=== PATIENT | female | born 1975 | race Caucasian/White ===

== ENCOUNTER 2023-11-23 06:42 | Emergency (ER) | payer MEDICAID, OTHER ==
[~2023-11-23] VITALS: Ht 170.2 cm; Wt 100.0 kg
[2023-11-23 06:51] VITALS: BP 104/66; PULSE 83; RESP 18; TEMP 97.8; O2SAT 97
[2023-11-23 07:40] LABS: BASOPHILS % 0.6 % (0.0-2.0); EOSINOPHILS % 3.5 % (0.0-5.0); HEMATOCRIT. 46.5 % (36.0-48.0); LYMPHOCYTES % 21.5 % (20.0-50.0); MEAN CORPUSCULAR HEMOGLOBIN 31.3 pg (28.0-32.0); MEAN CORPUSCULAR HGB CONC 32.3 g/dL (31.0-37.0); MEAN CORPUSCULAR VOLUME 96.7 fL (81.0-99.0); MEAN PLATELET VOLUME 8.8 fl (7.4-10.4); MONOCYTES % 5.3 % (2.0-8.0); NEUTROPHILS % 69.1 % (40.0-76.0); PLATELET 237 x1000/uL (130-400); RED BLOOD CELL COUNT 4.81 mill/uL (4.2-5.4); RED CELL DISTRIBUTION WIDTH 14.2 % (11.6-14.6); WHITE BLOOD COUNT 9.8 x1000/uL (4.5-11.0)
[2023-11-23 07:51] LABS: POTASSIUM 4.7 mEq/L (3.5-5.1)
[2023-11-23 07:52] LABS: CALCIUM 9.9 mg/dL (8.7-10.4)
[2023-11-23 07:57] LABS: CREATININE 1.3 mg/dL (0.6-1.0)
[2023-11-23 08:32] LABS: HCG SCREEN NEGATIVE
[2023-11-23 08:48] LABS: TROPONIN I HIGH SENSITIVITY 15 ng/L (3.0-34)
[2023-11-23 08:49] LABS: ALANINE AMINOTRANSFERASE 17 IU/L (10-49); ALBUMIN 4.5 g/dL (3.2-4.8); ASPARTATE AMINOTRANSFERASE 17 IU/L (<34); BILIRUBIN DIRECT 0.2 mg/dL (<=3.0); BILIRUBIN TOTAL 0.6 mg/dL (0.1-1.0); PROTEIN TOTAL 7.2 g/dL (6.0-8.3)
[2023-11-23 09:59] LABS: TROPONIN I HIGH SENSITIVITY 16 ng/L (3.0-34)
[2023-11-23] MEDS: MORPHINE SULFATE 4 MG/ML INJ (FOR IV/IM USE) IM ONE (10:40)
[2023-11-23 13:13] LABS: CLARITY URINE CLEAR (CLEAR); COLOR URINE YELLOW (YELLOW); GLUCOSE URINE 3+ (NEGATIVE); KETONES URINE 1+ (NEGATIVE); LEUKOCYTE ESTERASE URINE NEGATIVE (NEGATIVE); NITRITE URINE NEGATIVE (NEGATIVE); OCCULT BLOOD URINE TRACE (NEGATIVE); PH URINE 5.5 (4.5-8.0); PROTEIN URINE 1+ (NEGATIVE); SPECIFIC GRAVITY URINE 1.036 (1.005-1.030); UROBILINOGEN URINE 0.2 E.U./dL (0.2-1.0)
[2023-11-23 14:06] LABS: BACTERIA URINE 4+; SQUAMOUS EPITHELIAL CELL URINE 3+ /lpf (RARE/1+)
[2023-11-23 14:09] LABS: RBC URINE NONE SEEN /hpf (0-2)
== END 2023-11-23 14:02 | disposition home or self-care (01) ==
LOC: ER 06:42
DX: R10.9 Unspecified abdominal pain (principal); I25.2 Old myocardial infarction; I10 Essential (primary) hypertension; E11.9 Type 2 diabetes mellitus without complications
CPT/HCPCS: 99285; 74176; 71045; 80076; 80048; 81003; 84703; 83690; 85025; 84484; 93005; 96372; 36415; J2270

== ENCOUNTER 2024-06-26 03:32 | Emergency (ER) | payer OTHER ==
[~2024-06-26] VITALS: Ht 162.6 cm; Wt 90.0 kg
[2024-06-26 03:34] VITALS: O2SAT 99
[2024-06-26] MEDS ORDERED: MORPHINE SULFATE 4 MG/ML INJ (FOR IV/IM USE) IV STA (03:51)
[2024-06-26] MEDS ORDERED: ONDANSETRON HCL 4MG/2ML INJ IV STA (03:51)
[2024-06-26 04:47] LABS: BASOPHILS % 0.6 % (0.0-2.0); EOSINOPHILS % 9.4 % (0.0-5.0); HEMATOCRIT. 40.9 % (36.0-48.0); HEMOGLOBIN. 13.6 g/dL (12.0-16.0); LYMPHOCYTES % 27.4 % (20.0-50.0); MEAN CORPUSCULAR HGB CONC 33.3 g/dL (31.0-37.0); MEAN CORPUSCULAR VOLUME 99.2 fL (81.0-99.0); MEAN PLATELET VOLUME 8.3 fl (7.4-10.4); MONOCYTES % 10.4 % (2.0-8.0); NEUTROPHILS % 52.2 % (40.0-76.0); PLATELET 240 x1000/uL (130-400); RED BLOOD CELL COUNT 4.12 mill/uL (4.2-5.4); RED CELL DISTRIBUTION WIDTH 13.4 % (11.6-14.6); WHITE BLOOD COUNT 7.1 x1000/uL (4.5-11.0)
[2024-06-26 04:54] LABS: POTASSIUM 4.3 mEq/L (3.5-5.1)
[2024-06-26 05:18] LABS: HCG SCREEN NEGATIVE
[2024-06-26 05:46] LABS: CREATININE 1.2 mg/dL (0.6-1.0)
[2024-06-26 09:15] VITALS: TEMP 36.6; O2SAT 100
[2024-06-26 09:28] VITALS: BP 109/88; PULSE 72; RESP 15
[2024-06-26] MEDS: MORPHINE SULFATE 4 MG/ML INJ (FOR IV/IM USE) IV NR (09:28)
[2024-06-26] MEDS: ONDANSETRON HCL 4MG/2ML INJ IV NR (09:28)
== END 2024-06-26 09:35 | disposition short-term general hospital (02) ==
LOC: ER 03:32 → CANBEDREQ 07:33 → ER 09:35
DX: R10.11 Right upper quadrant pain (principal); E11.9 Type 2 diabetes mellitus without complications; I25.2 Old myocardial infarction
CPT/HCPCS: 80048; 84703; 83605; 83690; 85025; 36415; 74176; 96374; 99285; J2405; J2270; A4663; Z7610 ×2; C1893; A4606

== ENCOUNTER 2025-01-07 13:01 | Emergency (ER) | payer MEDICAID ==
[~2025-01-07] VITALS: Ht 165.1 cm; Wt 90.0 kg
[~2025-01-07 13:01] MED LIST: ASPI-1406 PO; ATOR20TA65 MT; CLOP-31 MT; EMPA25TA MT; GABA-1180 PO; IBUP-2029 MT; INSU100I24 SUBCUT; TICA60TA PO; TOPI-95 PO
[2025-01-07 13:02] VITALS: TEMP 36.9; O2SAT 97
[2025-01-07 14:02] LABS: CREATININE 1.3 mg/dL (0.6-1.0); UREA NITROGEN BLOOD 19 mg/dL (9-23)
[2025-01-07 14:03] LABS: ETHANOL BLOOD < 10 mg/dL (<10); HCG SCREEN NEGATIVE
[2025-01-07 14:04] LABS: ASPARTATE AMINOTRANSFERASE 18 IU/L (<34); BILIRUBIN DIRECT 0.1 mg/dL (<=3.0)
[2025-01-07 14:05] LABS: BILIRUBIN TOTAL 0.5 mg/dL (0.1-1.0); PROTEIN TOTAL 6.8 g/dL (6.0-8.3)
[2025-01-07] MEDS: ONDANSETRON HCL 4MG/2ML INJ IV ONE (14:12)
[2025-01-07] MEDS: PANTOPRAZOLE SODIUM 40 MG/VIAL IV ONE (14:12)
[2025-01-07] MEDS: MORPHINE SULFATE 4 MG/ML INJ (FOR IV/IM USE) IV ONE (14:12)
[2025-01-07 14:14] LABS: BASOPHILS % 0.7 % (0.0-2.0); EOSINOPHILS % 4.4 % (0.0-5.0); HEMATOCRIT. 43.4 % (36.0-48.0); HEMOGLOBIN. 14.3 g/dL (12.0-16.0); LYMPHOCYTES % 27.0 % (20.0-50.0); MEAN PLATELET VOLUME 8.5 fl (7.4-10.4); MONOCYTES % 8.1 % (2.0-8.0); NEUTROPHILS % 59.8 % (40.0-76.0); PLATELET 262 x1000/uL (130-400); RED BLOOD CELL COUNT 4.50 mill/uL (4.2-5.4); RED CELL DISTRIBUTION WIDTH 13.9 % (11.6-14.6)
[2025-01-07 15:01] LABS: INR 1.0
[2025-01-07] MEDS: SODIUM CHLORIDE 0.9% 500 ML IV ONE (15:17)
[2025-01-07] MEDS: SUCRALFATE 1G TABLET PO STA (15:41)
[2025-01-07 16:57] LABS: CLARITY URINE CLEAR (CLEAR); COLOR URINE YELLOW (YELLOW); GLUCOSE URINE 3+ (NEGATIVE); KETONES URINE NEGATIVE (NEGATIVE); LEUKOCYTE ESTERASE URINE NEGATIVE (NEGATIVE); NITRITE URINE POSITIVE (NEGATIVE); OCCULT BLOOD URINE 1+ (NEGATIVE); PH URINE 6.0 (4.5-8.0); PROTEIN URINE 2+ (NEGATIVE); SPECIFIC GRAVITY URINE 1.026 (1.005-1.030); UROBILINOGEN URINE 0.2 E.U./dL (0.2-1.0)
[2025-01-07 17:14] LABS: *AMPHETAMINES SCREEN URINE NEGATIVE (NEGATIVE); *BARBITURATES SCREEN URINE NEGATIVE (NEGATIVE); *BENZODIAZEPINES SCREEN URINE NEGATIVE (NEGATIVE)
[2025-01-07 17:15] LABS: *COCAINE SCREEN URINE NEGATIVE (NEGATIVE); CANNABINOID URINE SCREEN PRESUMPTIVE POSITIVE (NEGATIVE); ECSTASY MDMA SCREEN URINE NEGATIVE (NEGATIVE); METHADONE URINE SCREEN NEGATIVE (NEGATIVE); OPIATES URINE SCREEN PRESUMPTIVE POSITIVE (NEGATIVE); PHENCYCLIDINE URINE SCREEN NEGATIVE (NEGATIVE)
[2025-01-07 17:23] LABS: BACTERIA URINE 3+; SQUAMOUS EPITHELIAL CELL URINE 2+ /lpf (RARE/1+); WBC URINE 0-2 /hpf (0-2)
[2025-01-07] MEDS ORDERED: CEFP200T13 MT (17:39)
[2025-01-07] MEDS: CEFTRIAXONE 1GM/50ML 50 ML IV ONE (17:56)
[2025-01-07 19:01] VITALS: BP 139/77; PULSE 81; RESP 19; O2SAT 97
== END 2025-01-07 19:10 | disposition home or self-care (01) ==
LOC: ER 13:01
DX: N39.0 Urinary tract infection, site not specified (principal); R06.02 Shortness of breath; F12.10 Cannabis abuse, uncomplicated; F16.10 Hallucinogen abuse, uncomplicated; I25.2 Old myocardial infarction; I10 Essential (primary) hypertension; Z79.82 Long term (current) use of aspirin; Z79.4 Long term (current) use of insulin; Z79.899 Other long term (current) drug therapy; Z98.890 Other specified postprocedural states; Z87.891 Personal history of nicotine dependence
CPT/HCPCS: 80076; 80305; 80048; 81003; 80320; 84703; 83880; 83690; 83735; 85025; 85610; 36415; 74176; 93005; 96361; 96365; 96375; 99285; J0696; J2405; J2470; J2270; J7040; Z7610 ×2; A4606; G0480